=== PATIENT | female | born 1980 | race American Indian/Alaskan Native ===

== ENCOUNTER 2016-05-03 17:59 | Emergency (ER) | payer MEDICAID ==
--- NOTE | 2016-05-04 02:28 | Emergency Department Report ---
HPI - General Chief Complaint: Upper Respiratory Infection Time Seen by Provider: 05/04/16 02:13 - HPI HPI: Patient is a 35-year-old female who presents to ED complaining of cough 6 days. Patient describes as green mucus productive cough as the course of the past 1 week. Patient also had fever and chills. Patient denies nausea says vomited so she brought his dysuria/vaginal discharge/ dizziness/headaches/blurry vision or any other problems ED Past Medical Hx - Surgical History Additional Surgical History: CS - Social History Smoking Status: Never Smoker Substance Use Type: None - Medications Home Medications: Home Medications Medication Instructions Recorded Confirmed Last Taken Type Butalb/Acetamin/Caff 50-325-40 1 tab PO Q6HR PRN #30 tab 12/08/14 Unknown Rx [Fioricet] buPROPion SR [Wellbutrin SR] 150 mg PO DAILY 12/08/14 12/08/14 Unknown History traZODone [Desyrel] 150 mg PO QHS 12/08/14 12/08/14 Unknown History Azithromycin [Zithromax TAB] 250 mg PO DAILY #6 tablet 05/04/16 Unknown Rx Ibuprofen [Motrin 800 MG tab] 800 mg PO Q8HR PRN #30 tablet 05/04/16 Unknown Rx guaiFENesin [Robitussin] 200 mg PO Q6H #1 bottle 05/04/16 Unknown Rx ED Review of Systems ROS: Stated complaint: SORE THROAT/COUGH Other details as noted in HPI Constitutional: denies: chills, fever, malaise Eyes: denies: eye pain, eye discharge, vision change ENT: denies: ear pain, throat pain, dental pain, hearing loss, epistaxis Respiratory: cough. denies: shortness of breath, SOB with exertion, wheezing Cardiovascular: denies: chest pain, palpitations Endocrine: no symptoms reported. denies: flushing Gastrointestinal: denies: abdominal pain, nausea, vomiting, diarrhea, melena Genitourinary: denies: urgency, dysuria, frequency, hematuria, discharge Musculoskeletal: denies: back pain, joint swelling, arthralgia Skin: denies: rash, lesions, change in color, pruritus Neurological: denies: headache, weakness, paresthesias Psychiatric: denies: anxiety, depression Hematological/Lymphatic: denies: easy bleeding, easy bruising Physical Exam - Physical Exam Vital Signs: Vital Signs 05/03/16 18:28 Temperature 99.1 F Pulse Rate 104 H Respiratory 18 Rate Blood Pressure 141/95 O2 Sat by Pulse 99 Oximetry Physical Exam: GENERAL: Alert and oriented x3, no apparent distress, Normal Gait, atraumatic. HEAD: Head is normocephalic and a-traumatic. EYES: Extra ocular muscles are intact. Pupils are equal, round, and reactive to light and accommodation. EARS: symetrical, atraumatic, non tender, ear canal clear and moderate cerumen, tympanic membrance non inflamed. gross auditory nml bilaterally. NOSE: Nose symetrical, Nontender,Nares appeared normal. MOUTH:Mouth is well hydrated and without lesions. Tonsils nonerythematous or swollen, Uvula midline, Tongue not elevated. Mucous membranes are moist. Posterior pharynx clear, no exudate or lesions. Patent airways. Tenderness to maxillary sinuses bilaterally NECK: Supple. Non edematous, No carotid bruits. No lymphadenopathy or thyromegaly. LUNGS: Symetrical with respiration, No wheezing, no rales or crackles, CTAB. HEART: S1, S2 present, regular rate and rhythm without murmur, no rubs, no gallops. ABDOMEN: No organomegaly was noted,Positive bowel sounds, soft, and non- distended. . Nontender to palpation on all Quadrants, NO CVA tenderness. EXTREMITIES/MUSCULOSKELETAL: No cyanosis, clubbing, rash, lesions or edema. Full ROM bilaterally. UE/LE Pulses 2+ bilaterally. NEUROLOGIC: No focal Deficit, Cranial nerves II through XII are grossly intact. No loss of sensation PSYCHIATRIC: Mood is congruent with affect, denies suicidal or homicidal ideations. SKIN: Warm and dry, No lesions, No ulceration or induration present. ED Course Vital Signs 05/03/16 18:28 Temperature 99.1 F Pulse Rate 104 H Respiratory 18 Rate Blood Pressure 141/95 O2 Sat by Pulse 99 Oximetry ED Medical Decision Making - Medical Decision Making 35-year-old female presents with URI/sinusitis. Discussed with patient antibiotic therapy and Cough suppressant. Discussed with patient to follow up with primary care physician. Discussed with mother symptomatic relief with [id number] medications such as Motrin and Tylenol. Discussed with mother symptoms persists for 1-2 weeks. Patient verbalizes she understands and will comply to follow instructions as given. Critical care attestation.: If time is entered above; I have spent that time in minutes in the direct care of this critically ill patient, excluding procedure time. ED Disposition Clinical Impression: URI (upper respiratory infection) Qualifiers: URI type: unspecified URI Qualified Code(s): J06.9 - Acute upper respiratory infection, unspecified Sinusitis Qualifiers: Sinusitis location: maxillary Chronicity: acute Recurrence: non-recurrent Qualified Code(s): J01.00 - Acute maxillary sinusitis, unspecified Disposition: DISCHARGED TO HOME OR SELFCARE Is pt being admited?: No Does the pt Need Aspirin: No Condition: Stable Instructions: Upper Respiratory Infection (ED) Prescriptions: Azithromycin [Zithromax TAB] 250 mg PO DAILY #6 tablet guaiFENesin [Robitussin] 200 mg PO Q6H #1 bottle Ibuprofen [Motrin 800 MG tab] 800 mg PO Q8HR PRN #30 tablet PRN Reason: Pain Referrals: PRIMARY CARE, [Primary Care Provider] - 3-5 Days TERESSA ARZATE MD [Referring] - 3-5 Days OLEKSANDR MORGAN MD [Referring] - 3-5 Days [facility] [Outside] - 3-5 Days [facility] [place] [Outside] - 3-5 Days Forms: Accompanied Note, Work/School Release Form(ED) Time of Disposition: 02:58
[2016-05-04 02:38] VITALS: BP 107/72
[2016-05-04] MEDS ORDERED: ROBITUSSIN PO ONE (02:48)
[2016-05-04] MEDS ORDERED: ZITHROMAX PO ONE (02:48)
== END 2016-05-04 03:21 | disposition home or self-care (01) ==
LOC: ED 17:59
DX: J06.9 Acute upper respiratory infection, unspecified (principal); J01.00 Acute maxillary sinusitis, unspecified
CPT/HCPCS: 99282